=== PATIENT | female | born 1970 | race Caucasian/White ===

== ENCOUNTER 2021-02-20 00:42 | Emergency (ER) | payer BC ==
[2021-02-20] MEDS ORDERED: LODINE CAP 300300 MG PO (04:21)
== END 2021-02-20 04:28 | disposition home or self-care (01) ==
LOC: ER1 00:42
DX: M25.552 Pain in left hip (principal); E11.9 Type 2 diabetes mellitus without complications; I10 Essential (primary) hypertension; E66.01 Morbid (severe) obesity due to excess calories; Z90.49 Acquired absence of other specified parts of digestive tract
CPT/HCPCS: 72192; 99283